=== PATIENT | male | born 1995 | race Two or more races ===

== ENCOUNTER 2025-01-05 09:25 | Emergency (ER) | payer OTHER, SELFPAY ==
[2025-01-05 09:33] VITALS: BP 139/84; PULSE 84; TEMP 37.1; O2SAT 98; BMI 24.0
--- NOTE | 2025-01-05 09:36 | XR_ITS ---
The [address] [address] Patient Name: SEMAJ PARKINSON MRN: [id number] date: 1995 Sex: M Assigned Patient Location: ED.MAIN Current Patient Location: ED.MAIN Accession/Order Number: [id number] Exam Date: 01/05/2025 10:08 Report Date: 01/05/2025 10:13 At the request of: NGUYỄN NOE MD Procedure: XR lumbar spine 2-3V CLINICAL DATA: Acute mid to low back pain for the past 1to 2 weeks. No injury. THORACIC SPINE -2 views: COMPARISON: None AP and 3 lateral views were obtained. There is subtle dextroscoliotic curvature. There is no evidence of compression fracture or displacement. The pedicles are intact. There is minimal endplate spurring distally. There are no paraspinal soft tissue abnormalities. XR/XR lumbar spine 2-3V IMPRESSION: NO ACUTE BONY FINDINGS. LUMBAR SPINE-3 views: COMPARISON: None AP, lateral lumbar and lumbosacral views were obtained. There is no evidence of fracture. Alignment is maintained on the lateral view. The disc spaces are normal in height. There is minimal endplate spurring. The sacroiliac joints are maintained. There are no paraspinal soft tissue abnormalities. IMPRESSION: NO ACUTE BONY FINDINGS. Impression dictated by: Rosmery Spear M.D. 01/05/2025 10:13 AM Dictation Location: [place] [address] Electronically authenticated by: [id number] Y Date: 01/05/2025 10:13
--- NOTE | 2025-01-05 09:39 | ED_ITS ---
HPI HPI - General Adult General Chief complaint: Back Pain/Injury Stated complaint: BACK PAIN Time Seen by Provider: 01/05/25 09:32 Source: patient Mode of arrival: walk-in Limitations: no limitations History of Present Illness HPI narrative: 29-year-old male presents to the emergency department for back pain. He points to the lower thoracic and upper lumbar area to indicate where the pain is. No injury or unusual activity. No dysuria or hematuria. He does not speak Croatian well and history is obtained through an back tender cloth printing and is considered excellent. No history of back problems. Related Data Previous Rx's ?Medication ?Instructions ?Recorded ibuprofen 800 mg tablet 800 mg PO Q8H PRN pain #20 t abs 01/05/25 methocarbamol 750 mg tablet 750 mg PO Q6H PRN pain #20 tabs 01/05/25 Allergies Allergy/AdvReac Type Severity Reaction Status Date / Time No Known Drug Allergies Allergy Verified 01/05/25 09:36 Review of Systems ROS Narrative A ten point review of systems is negative except as noted above. PFSH PFSH Social History Little interest or pleasure in doing things: not at all Feeling down, depressed, or hopeless: not at all Exam Narrative Exam Narrative: Nurses note and vital signs reviewed and patient is not hypoxic. General: The patient appears well and in no apparent distress. Patient is resting comfortably on cart. Skin: Warm, dry, no pallor noted. There is no rash noted. Head: Normocephalic, atraumatic Eye: Normal conjunctiva, no drainage Ears, Nose, Mouth, and Throat: oral mucosa is moist. Nares patent. Cardiovascular: Regular Rate and Rhythm Respiratory: Patient is in no distress, no accessory muscle use, lungs are clear to auscultation, no wheezing, rales or rhonchi GI: Soft and nontender Musculoskeletal: His back is examined there is no bruise rash or abrasion or palpable tenderness Neurological: Awake and alert Psychiatric: Cooperative Constitutional Vital Signs, click to edit/add: Last Vital Signs Temp 98.7 F 01/05/25 09:33 Pulse 84 01/05/25 09:33 Resp 16 01/05/25 09:33 BP 139/84 01/05/25 09:33 Pulse Ox 98 01/05/25 09:33 O2 Del Method Room Air 01/05/25 09:33 Course Vital Signs Vital signs: Vital Signs Temperature 98.7 F 01/05/25 09:33 Pulse Rate 84 01/05/25 09:33 Respiratory Rate 16 01/05/25 09:33 Blood Pressure 139/84 01/05/25 09:33 Pulse Oximetry 98 01/05/25 09:33 Oxygen Delivery Method Room Air 01/05/25 09:33 Temperature 98.7 F 01/05/25 09:33 Pulse Rate 84 01/05/25 09:33 Respiratory Rate 16 01/05/25 09:33 Blood Pressure 139/84 01/05/25 09:33 Pulse Oximetry 98 01/05/25 09:33 Oxygen Delivery Method Room Air 01/05/25 09:33 Medical Decision Making MDM Narrative Medical decision making narrative: X-rays of thoracic and lumbar area shows no acute findings per radiologist and urinalysis is negative. He will be treated symptomatically with ibuprofen and Robaxin. Treatment diagnosis and follow-up were discussed with the patient. Differential Diagnosis Differential Diagnosis: Lumbar strain, degenerative disc disease, fracture Lab Data Lab results reviewed: Yes I reviewed the patient's lab results Labs: Lab Results 01/05/25 Range/Units 10:00 Urine Color Lt. yellow (YELLOW) Urine Clarity Clear (CLEAR) Urine pH 7.5 (5.0-9.0) Ur Specific [place] 1.015 (1.005-1.025) Urine Protein Negative (NEG/TRACE) mg/dL Urine Glucose (UA) Negative (NEGATIVE) mg/dL Urine Ketones Negative (NEGATIVE) mg/dL Urine Occult Blood Negative (NEGATIVE) Urine Nitrite Negative (NEGATIVE) Urine Bilirubin Negative (NEGATIVE) Urine Urobilinogen 1.0 (0.2-1.0) EU/dL Ur Leukocyte Esterase Negative (NEGATIVE) Urine RBC 0-2 (0-2) #/HPF Urine WBC 0-2 A (NONE SEEN) #/HPF Ur Squamous Epith Cells Rare (NONE/RARE) #/LPF Urine Crystals None seen (None Seen) #/HPF Urine Bacteria None seen (NONE SEEN) #/HPF Urine Casts None seen (NONE SEEN) #/LPF Urine Mucus None seen (NONE SEEN) Imaging Data Thoracic, lumbar x-rays: Radiologist's impression: ITS Impressions Lumbar Spine X-Ray 01/05/25 09:36 IMPRESSION: NO ACUTE BONY FINDINGS. LUMBAR SPINE-3 views: COMPARISON: None AP, lateral lumbar and lumbosacral views were obtained. There is no evidence of fracture. Alignment is maintained on the lateral view. The disc spaces are normal in height. There is minimal endplate spurring. The sacroiliac joints are maintained. There are no paraspinal soft tissue abnormalities. IMPRESSION: NO ACUTE BONY FINDINGS. Impression dictated by: Rosmery Spear M.D. 01/05/2025 10:13 AM Dictation Location: [facility] Electronically authenticated by: [id number] Y Date: 01/05/2025 10:13 Thoracic Spine X-Ray 01/05/25 09:39 IMPRESSION: NO ACUTE BONY FINDINGS. LUMBAR SPINE-3 views: COMPARISON: None AP, lateral lumbar and lumbosacral views were obtained. There is no evidence of fracture. Alignment is maintained on the lateral view. The disc spaces are normal in height. There is minimal endplate spurring. The sacroiliac joints are maintained. There are no paraspinal soft tissue abnormalities. IMPRESSION: NO ACUTE BONY FINDINGS. Impression dictated by: Rosmery Spear M.D. 01/05/2025 10:13 AM Dictation Location: [facility] Electronically authenticated by: [id number] Y Date: 01/05/2025 10:13 Discharge Plan Discharge Chief Complaint: Back Pain/Injury Clinical Impression: Strain of lumbar region Patient Disposition: Home, Self-Care Time of Disposition Decision: 10:40 Condition: Good Mode of Transportation: Private Vehicle Prescriptions / Home Meds: New ibuprofen 800 mg tablet 800 mg PO Q8H PRN (Reason: pain) Qty: 20 0RF methocarbamol 750 mg tablet 750 mg PO Q6H PRN (Reason: pain) Qty: 20 0RF Print Language: Tristanian Instructions: Muscle Strain (ED), Back Pain (ED) Referrals: Physician,Non-Staff, MD [Primary Care Provider] - 1 week
--- NOTE | 2025-01-05 09:39 | XR_ITS ---
The [address] [address] Patient Name: SEMAJ PARKINSON MRN: [id number] date: 1995 Sex: M Assigned Patient Location: ED.MAIN Current Patient Location: ED.MAIN Accession/Order Number: [id number] Exam Date: 01/05/2025 10:08 Report Date: 01/05/2025 10:13 At the request of: NGUYỄN NOE MD Procedure: XR lumbar spine 2-3V CLINICAL DATA: Acute mid to low back pain for the past 1to 2 weeks. No injury. THORACIC SPINE -2 views: COMPARISON: None AP and 3 lateral views were obtained. There is subtle dextroscoliotic curvature. There is no evidence of compression fracture or displacement. The pedicles are intact. There is minimal endplate spurring distally. There are no paraspinal soft tissue abnormalities. XR/XR thoracic spine 2V IMPRESSION: NO ACUTE BONY FINDINGS. LUMBAR SPINE-3 views: COMPARISON: None AP, lateral lumbar and lumbosacral views were obtained. There is no evidence of fracture. Alignment is maintained on the lateral view. The disc spaces are normal in height. There is minimal endplate spurring. The sacroiliac joints are maintained. There are no paraspinal soft tissue abnormalities. IMPRESSION: NO ACUTE BONY FINDINGS. Impression dictated by: Rosmery Spear M.D. 01/05/2025 10:13 AM Dictation Location: [place] [address] Electronically authenticated by: [id number] Y Date: 01/05/2025 10:13
[2025-01-05 10:08] LABS: Bilirubin Urine NEGATIVE (NEGATIVE); Blood Urine NEGATIVE (NEGATIVE); Clarity Urine CLEAR (CLEAR); Color Urine LT. YELLOW (YELLOW); Glucose Urine UA NEGATIVE (NEGATIVE); Ketones Urine NEGATIVE (NEGATIVE); Leukocyte Esterase Urine NEGATIVE (NEGATIVE); Nitrite Urine NEGATIVE (NEGATIVE); Protein Urine NEGATIVE (NEG/TRACE); Specific Gravity Urine 1.015 (1.005-1.025); pH Urine 7.5 (5.0-9.0)
[2025-01-05 10:24] LABS: Bacteria Urine NONE SEEN #/HPF (NONE SEEN); RBC Urine 0-2 #/HPF (0-2); WBC Urine 0-2 #/HPF (NONE SEEN)
[2025-01-05 10:25] LABS: Cast Seen? NONE SEEN #/LPF (NONE SEEN); Crystals Seen? None Seen #/HPF (None Seen); Mucus Urine NONE SEEN (NONE SEEN); Squamous Epithelial Cell Urine RARE #/LPF (NONE/RARE)
== END 2025-01-05 10:52 | disposition home or self-care (01) ==
PROVIDERS: Emergency Provider Emergency Medicine
DX: S39.012A Strain of muscle, fascia and tendon of lower back, initial encounter (principal); X58.XXXA Exposure to other specified factors, initial encounter
CPT/HCPCS: 72070; 72100; 81001; 99285

== ENCOUNTER 2025-02-08 07:32 | Emergency (ER) | payer OTHER, SELFPAY ==
[2025-02-08 07:38] VITALS: BP 124/93; PULSE 72; TEMP 37.3; O2SAT 99; BMI 25.5
--- NOTE | 2025-02-08 07:55 | ED.GENADUL1 ---
HPI HPI - General Adult General Chief complaint: Dental/Oral Stated complaint: DENTAL PAIN SWELLING Time Seen by Provider: 02/08/25 07:36 Source: patient Mode of arrival: walk-in Limitations: language barrier Limitations comment: from [facility] History of Present Illness HPI narrative: 29-year-old male presents to the emergency department for toothache. He is complaining of pain to the left lower dentition which started 3 days ago and its become swollen. He does not have a dentist. The pain is continuous. No difficulty breathing or swallowing. Related Data Previous Rx's ?Medication ?Instructions ?Recorded acetaminophen 300 mg-codeine 30 mg 1 tab PO Q6H PRN pain 5 days #20 02/08/25 tablet tabs ibuprofen 800 mg tablet 800 mg PO Q8H PRN pain #20 tabs 02/08/25 penicillin V potassium 250 mg 250 mg PO QID 10 days #40 tabs 02/08/25 tablet Allergies Allergy/AdvReac Type Severity Reaction Status Date / Time No Known Drug Allergies Allergy Verified 01/05/25 09:36 Review of Systems ROS Narrative A ten point review of systems is negative except as noted above. PFSH PFSH Social History Little interest or pleasure in doing things: not at all Feeling down, depressed, or hopeless: not at all Exam Narrative Exam Narrative: Nurses note and vital signs reviewed and patient is not hypoxic. General: The patient appears well and in no apparent distress. Patient is resting comfortably on cart. Skin: Warm, dry, no pallor noted. There is no rash noted. Head: Normocephalic, atraumatic Eye: Normal conjunctiva, no drainage Ears, Nose, Mouth, and Throat: oral mucosa is moist. Nares patent. He has mild swelling to his left lower jaw. No erythema or crepitus. Neck has no masses or swelling. He has obvious dental caries in the left lower dentition. No bleeding or pus present. No swelling to the floor of the mouth. Cardiovascular: Regular Rate and Rhythm Respiratory: Patient is in no distress, no accessory muscle use, lungs are clear to auscultation, no wheezing, rales or rhonchi Back: non-tender GI: Soft and nontender Musculoskeletal: The patient has no evidence of calf tenderness, no pitting edema, symmetrical pulses noted bilaterally Neurological: A&O, normal speech Psychiatric: Cooperative Constitutional Vital Signs, click to edit/add: Last Vital Signs Temp 99.2 F 02/08/25 07:38 Pulse 72 02/08/25 07:38 Resp 16 02/08/25 07:38 BP 124/93 H 02/08/25 07:38 Pulse Ox 99 02/08/25 07:38 O2 Del Method Room Air 02/08/25 07:38 Course Vital Signs Vital signs: Vital Signs Temperature 99.2 F 02/08/25 07:38 Pulse Rate 72 02/08/25 07:38 Respiratory Rate 16 02/08/25 07:38 Blood Pressure 124/93 H 02/08/25 07:38 Pulse Oximetry 99 02/08/25 07:38 Oxygen Delivery Method Room Air 02/08/25 07:38 Temperature 99.2 F 02/08/25 07:38 Pulse Rate 72 02/08/25 07:38 Respiratory Rate 16 02/08/25 07:38 Blood Pressure 124/93 H 02/08/25 07:38 Pulse Oximetry 99 02/08/25 07:38 Oxygen Delivery Method Room Air 02/08/25 07:38 Medical Decision Making MDM Narrative Medical decision making narrative: He is provided prescriptions for Tylenol 3, ibuprofen, and penicillin and was given dental referral list. Treatment diagnosis and follow-up were discussed with the patient. Differential Diagnosis Differential Diagnosis: Dental caries, dental abscess Discharge Plan Discharge Chief Complaint: Dental/Oral Clinical Impression: Dental caries Patient Disposition: Home, Self-Care Time of Disposition Decision: 07:51 Condition: Good Mode of Transportation: Private Vehicle Prescriptions / Home Meds: New acetaminophen-codeine 300-30 mg tablet 1 tab PO Q6H PRN (Reason: pain) 5 Days Qty: 20 0RF penicillin V potassium 250 mg tablet 250 mg PO QID 10 Days Qty: 40 0RF ibuprofen 800 mg tablet 800 mg PO Q8H PRN (Reason: pain) Qty: 20 0RF Print Language: Latvian Instructions: Toothache (ED) Referrals: Physician,Non-Staff, MD [Primary Care Provider] - 1 week
[2025-02-08] MEDS: KETOROLAC TROMETHAMINE 60 MG/2 ML VIAL IM (08:13)
[2025-02-08] MEDS: CEFAZOLIN SODIUM 1,000 MG VIAL 1000 MG IM (08:13)
== END 2025-02-08 08:19 | disposition home or self-care (01) ==
PROVIDERS: Emergency Provider Emergency Medicine
DX: K02.9 Dental caries, unspecified (principal)
CPT/HCPCS: 96372; 99284; J0690; J1885